=== PATIENT | male | born 1980 | race Caucasian/White ===

== ENCOUNTER 2018-09-10 17:58 | Emergency (ER) | payer OTHER ==
[~2018-09-10] VITALS: Ht 190.5 cm; Wt 126.1 kg
[2018-09-10] MEDS ORDERED: Cleocin HCl300 MG PO (19:39)
[2018-09-10] MEDS ORDERED: IBUP600 PO (19:39)
== END 2018-09-10 19:56 | disposition home or self-care (01) ==
LOC: ER 17:58
DX: K02.9 Dental caries, unspecified (principal); F17.200 Nicotine dependence, unspecified, uncomplicated
CPT/HCPCS: 99282

== ENCOUNTER → 2019-09-03 | Outpatient (CLI) | payer OTHER ==
[~2019-09-03] MED LIST: Cleocin HCl300 MG PO; IBUP600 PO
[2019-09-03 16:12] LABS: U Amphetamine Screen DETECTED
[2019-09-03 16:13] LABS: U Barbituate Screen Not Detected; U Benzodiazapine Screen Not Detected; U Buprenorphine Screen Not Detected; U Cannabinoids Screen Not Detected; U Cocaine Screen Not Detected; U Methadone Screen Not Detected; U Methamphetamine Screen Not Detected; U Opiates Screen Not Detected; U Oxycodone Screen Not Detected; U Phencyclidine Screen Not Detected; U Propoxyphene Screen Not Detected
== END | disposition home or self-care (01) ==
LOC: LAB 15:38 → LAB SHORT 15:38
PROVIDERS: Registered Nurse Psychiatric/Mental Health
DX: Z51.81 Encounter for therapeutic drug level monitoring (principal); Z79.899 Other long term (current) drug therapy